=== PATIENT | female | born 1995 | race Caucasian/White ===

== ENCOUNTER → 2025-03-29 | Outpatient (CLI) | payer BC ==
[2025-03-29 15:50] LABS: Chol/HDL Ratio 5.71 Ratio
[2025-03-29 15:51] LABS: ALT 16 U/L (8-44); AST 20 U/L (13-35); Albumin 3.9 g/dL (3.8-4.9); Albumin/Globulin Ratio 1.44 Ratio (1.60-3.17); Alkaline Phosphatase 120 U/L (41-126); Blood Urea Nitrogen 4.6 mg/dL (9.0-27.0); Calcium 9.3 mg/dL (8.7-10.3); Carbon Dioxide 21.2 mmol/L (21.6-31.8); Chloride 105 mmol/L (96-109); Globulin 2.7 g/dL (1.6-3.3); Glucose 80 mg/dL (70-110); LDL Cholesterol,Calculated 187.3 mg/dL (0.0-131.0); Potassium 4.1 mmol/L (3.5-5.5); Sodium 137 mmol/L (135-145); Total Bilirubin <0.2 mg/dL (0.3-1.2); Total Protein 6.6 g/dL (6.2-8.2)
[2025-03-29 16:15] LABS: Basophils # (A) 0.04 X 10*3/uL (0.00-0.10); Basophils % (A) 0.3 %; Eosinophils # (A) 0.07 X 10*3/uL (0.04-0.35); Eosinophils % (A) 0.6 %; HGB 10.9 g/dL (12.0-15.0); Lymphocytes # (A) 1.69 X 10*3/uL (0.90-5.00); Lymphocytes % (A) 14.4 %; MCH 31.6 pg (27.0-32.0); MCV 95.7 FL (80.0-97.0); Mean Platelet Volume 11.1 FL (9.5-12.2); Monocytes # (A) 0.85 X 10*3/uL (0.20-1.00); Monocytes % (A) 7.2 %; NRBC Per 100 WBC 0 X 10*3/uL (0.00-0.01); Neutrophils # (A) 8.95 X 10*3/uL (1.80-7.70); Neutrophils % (A) 76.1 %; Platelet Count 191 X 10*3/uL (140-440); RBC 3.45 X 10*6/uL (4.10-5.20); RDW 13.2 % (11.5-14.5); WBC 11.77 X 10*3/uL (4.50-10.00)
== END | disposition home or self-care (01) ==
LOC: LABWHC1 10:37
PROVIDERS: ATTEND Family Medicine
DX: Z00.00 Encounter for general adult medical examination without abnormal findings (principal)
CPT/HCPCS: 36415; 80053; 80061; 83036; 84443; 85025

== ENCOUNTER 2025-05-31 06:00 | Inpatient (IN) | payer BC ==
[2025-05-31] MEDS ORDERED: TERBUTALINE 1 MG/ML VIAL SQ PRN (19:26)
[2025-05-31] MEDS ORDERED: TRANEXAMIC 1,000 MG/100ML-NACL 1,000 MG in EMPTY BAG 1 BAG IV PRN (19:26)
[2025-05-31] MEDS ORDERED: OXYTOCIN 10 UNIT/ML 1 ML VIAL IM PRN (19:26)
[2025-05-31] MEDS ORDERED: CARBOPROST TROMETHAMINE 250 MCG/ML 1 ML AMP IM PRN (19:26)
[2025-05-31] MEDS ORDERED: LIDOCAINE 0.5% (PF) 5 MG/ML (50 ML SDV) SQ PRN (19:26)
[2025-05-31] MEDS ORDERED: METHYLERGONOVINE 0.2 MG/ML 1 ML AMP IM PRN (19:26)
[2025-05-31 20:00] LABS: Basophils # (A) 0.04 10*3/uL (0.00-0.10); Basophils % (A) 0.3 %; Eosinophils # (A) 0.08 10*3/uL (0.04-0.35); Eosinophils % (A) 0.6 %; HCT 31.3 % (37.2-46.3); HGB 10.8 g/dL (12.0-15.0); Lymphocytes # (A) 1.86 10*3/uL (0.90-5.00); Lymphocytes % (A) 14.2 %; MCH 31.7 pg (27.0-32.0); MCHC 34.5 g/dL (32.0-37.0); MCV 91.8 fL (80.0-97.0); Monocytes # (A) 1.11 10*3/uL (0.20-1.00); Monocytes % (A) 8.5 %; Neutrophils # (A) 9.86 10*3/uL (1.80-7.70); Neutrophils % (A) 75.2 %; Platelet Count 218 10*3/uL (140-440); RBC 3.41 10*6/uL (4.10-5.20); RDW 13.3 % (11.5-14.5); WBC 13.11 10*3/uL (4.50-10.00)
[2025-05-31] MEDS: DINOPROSTONE 10 MG INSERT.ER VAGINAL ONE (20:03)
--- NOTE | 2025-05-31 20:22 | P.HPOB ---
History of Present Illness H&P Date: 05/31/25 Chief Complaint: 38+ weeks, IUGR, induction The patient is a 29-year-old 1 para 0 admitted at 38+ weeks as established by last menstrual period and confirmed by second trimester ultrasound. She is admitted with a diagnosis of intrauterine growth restriction based on an abdominal circumference of less than 10th percentile. She has had reassuring twice-weekly testing since 34 weeks at the time of diagnosis. Her has otherwise been uncomplicated and group B strep status is negative. On labor and delivery, all signs are reassuring with a garo gory 1 heart rate tracing. Obstetrical history: 1 para 0 with current statistics listed in history of present illness. EDC of 06/12/2025 was established by last menstrual period and confirmed by second trimester ultrasound. Laboratory workup demonstrates a blood type of O+ with a negative antibody screen. Rubella status is immune. The remainder of the laboratory workup is within normal limits. 1 hour Glucola was normal and group B strep status is negative. Gynecologic history: Unremarkable with no history of any infections to include STDs. Review of Systems Review of systems is confined to history of present illness. Past Medical History Additional Past Medical History / Comment(s): anemia History of Any Multi-Drug Resistant Organisms: None Reported Past Surgical History: No Surgical Hx Reported Past Anesthesia/Blood Transfusion Reactions: No Reported Reaction Past Psychological History: No Psychological Hx Reported Smoking Status: Never smoker Past Drug Use History: None Reported Medications and Allergies Allergies Allergy/AdvReac Type Severity Reaction Status Date / Time amoxicillin Allergy Nausea & Verified 05/31/25 19:25 Vomiting Penicillins Allergy Nausea & Verified 05/31/25 19:25 Vomiting Exam Vital Signs Temp Pulse Resp BP Pulse Ox 05/31/25 19:24 97.7 F 75 16 96/65 99 Intake and Output 05/31/25 05/31/25 05/31/25 06:59 14:59 22:59 Other: # Voids 1 Weight 90.265 kg In general, this is a well-developed, well-nourished white female in no acute distress. Her heart has a regular rhythm and rate without murmur. Her lungs clear to auscultation bilateral in all honeycutt. Her abdomen is gravid, nondistended, has normal active bowel sounds, soft, nontender, without any palpable masses aside from the uterine fundus. Her extremities are without any cyanosis, clubbing, or edema and are nontender to palpation bilaterally. Digital cervical examination demonstrates her cervix to be 1 cm dilated, thick, with the vertex and presentation at -3-4 station. Given her unfavorable station, Cervidil was placed in the posterior vaginal fornix per protocol. Results Result Diagrams: 05/31/25 19:46 Abnormal Lab Results - Last 24 Hours (Table) 05/31/25 Range/Units 19:46 WBC 13.11 H (4.50-10.00) 10*3/uL RBC 3.41 L (4.10-5.20) 10*6/uL Hgb 10.8 L (12.0-15.0) g/dL Hct 31.3 L (37.2-46.3) % Immature Gran # 0.16 H (0.00-0.04) 10*3/uL Neutrophils # 9.86 H (1.80-7.70) 10*3/uL Monocytes # 1.11 H (0.20-1.00) 10*3/uL Assessment and Plan (1) Unfavorable cervix in term Current Visit: Yes Status: Acute Code(s): O34.40 - MATERNAL CARE FOR OTH ABNLT OF CERVIX, UNSP TRIMESTER SNOMED Code(s): 754274740 (2) Intrauterine growth retardation in Current Visit: Yes Status: Acute Code(s): O36.5990 - MATERN CARE FOR OTH OR SUSP POOR FETL GRTH, UNSP TRI, UNSP SNOMED Code(s): 372254576 (3) Term Current Visit: Yes Status: Acute Code(s): Z34.90 - ENCNTR FOR SUPRVSN OF NORMAL , UNSP, UNSP TRIMESTER SNOMED Code(s): 03596847 Plan: The patient is admitted for Cervidil cervical ripening to be followed by Pitocin induction tomorrow morning should it be necessary. Cervidil has been placed. All signs are reassuring with a category 1 heart rate tracing. She will have close maternal and surveillance and expectant management will be practiced. She is a good candidate for either IV or epidural analgesia, whichever she may choose. The risks and complications of cervical ripening and induction have been thoroughly explained.
[2025-06-01] MEDS: BUTORPHANOL 1 MG/ML 1 ML VIAL IV PRN (00:40)
[2025-06-01] MEDS: LACTATED RINGERS 1,000 ML IV SCH (00:40)
[2025-06-01] MEDS: OXYTOCIN 30 UNITS/500 ML NS 30 UNIT in SALINE 1 500ML.BAG IV SCH (06:02)
[2025-06-01] MEDS ORDERED: SODIUM CHLORIDE 0.9% 250 ML BAG ONE (09:48)
[2025-06-01] MEDS ORDERED: ROPIVACAINE 5 MG/ML 30 ML VIAL ONE (09:48)
[2025-06-01] MEDS ORDERED: fentaNYL (PF) 50 MCG/ML 5 ML AMP ONE (09:48)
[2025-06-01] MEDS ORDERED: diphenhydrAMINE 25 MG CAP PO PRN (14:40)
[2025-06-01] MEDS ORDERED: LANOLIN CREAM 1 GM TUBE TOPICAL PRN (14:40)
[2025-06-01] MEDS ORDERED: SIMETHICONE 80 MG CHEWABLE PO PRN (14:40)
[2025-06-01] MEDS ORDERED: BENZOCAINE/MENTHOL SPRAY 1 GM/SPRAY AEROSOL TOPICAL PRN (14:40)
[2025-06-01] MEDS ORDERED: HYDROCORTISONE 2.5% RECTAL CREAM 30 GM TUBE RECTAL PRN (14:40)
[2025-06-01] MEDS ORDERED: ACETAMINOPHEN TAB 500 MG TAB PO PRN (14:40)
[2025-06-01] MEDS ORDERED: diphenhydrAMINE 50 MG/ML 1 ML VIAL IVP PRN ×2 (14:40)
[2025-06-01] MEDS ORDERED: ZOLPIDEM 5 MG TAB PO PRN (14:40)
--- NOTE | 2025-06-01 14:44 | P.PROBDLV ---
Vaginal Delivery Note - . Vaginal Delivery Note: The patient is a 29-year-old 1 para 0 admitted at 38-3/7 weeks by good dating parameters. She is admitted for induction of labor secondary to a diagnosis of intrauterine growth restriction with the sole parameter making the diagnosis being an abdominal circumference less than 10th percentile. Her has been otherwise uncomplicated. testing done twice weekly since the diagnosis has been reassuring throughout. On labor delivery, she is admitted with a category 1 heart rate tracing. Group B strep status is negative. Her cervix was unfavorable for induction and she was admitted last evening for Cervidil cervical ripening which was placed in the posterior vaginal fornix per protocol. She did have some cramping overnight and this morning was found to be much more favorable with her cervix being 2+ centimeters dilated, 50% effaced, with the vertex and presentation -2 station. She had Pitocin started followed by artificial rupture of membranes for clear fluid. She made progress towards the active phase of labor and then had an epidural catheter placed for analgesia. She continued to progress steadily and ultimately reached complete. She pushed for approximately 40 minutes to a normal spontaneous vaginal delivery of a viable 5 pound 15.2 ounce baby boy with Apgars of 9 at 1 minute and 9 at 5 minutes delivered in the direct occiput anterior position. There was a loose nuchal cord x 1 which was reduced following delivery of the . The placenta was delivered spontaneously, intact, and grossly normal with a grossly normal, marginally inserted three-vessel cord. There was a small first-degree perineal laceration which was repaired with a single [id number] stitch of 3-0 chromic catgut without difficulty. Estimated blood loss for the case was approximately 100 mL. There were no complications. All sponge, instrument, and needle counts were correct. Both mother and infant are resting comfortably in recovery.
[2025-06-01] MEDS ORDERED: OXYTOCIN 30 UNITS/500 ML NS 30 UNIT in SALINE 1 500ML.BAG IV SCH (14:45)
[2025-06-01] MEDS: SENNOSIDES-DOCUSATE SODIUM 1 EACH TAB PO SCH (20:17)
[2025-06-01 20:41] VITALS: RESP 16
[2025-06-02] MEDS: IBUPROFEN 800 MG TAB PO PRN (05:46)
[2025-06-02 07:24] LABS: Basophils # (A) 0.05 10*3/uL (0.00-0.10); Basophils % (A) 0.3 %; Eosinophils # (A) 0.15 10*3/uL (0.04-0.35); Eosinophils % (A) 1.0 %; HCT 30.8 % (37.2-46.3); HGB 10.2 g/dL (12.0-15.0); Lymphocytes # (A) 2.28 10*3/uL (0.90-5.00); Lymphocytes % (A) 15.6 %; MCH 30.9 pg (27.0-32.0); MCHC 33.1 g/dL (32.0-37.0); MCV 93.3 fL (80.0-97.0); Monocytes # (A) 1.26 10*3/uL (0.20-1.00); Monocytes % (A) 8.6 %; Neutrophils # (A) 10.75 10*3/uL (1.80-7.70); Neutrophils % (A) 73.7 %; Platelet Count 217 10*3/uL (140-440); RBC 3.30 10*6/uL (4.10-5.20); RDW 13.5 % (11.5-14.5); WBC 14.60 10*3/uL (4.50-10.00)
--- NOTE | 2025-06-02 09:38 | P.DS ---
Providers Date of admission: 05/31/25 19:10 Expected date of discharge: 06/02/25 Attending physician: Ciaran Mina Primary care physician: Abelino Renee - Discharge Diagnosis(es) (1) Unfavorable cervix in term Current Visit: Yes Status: Acute (2) Intrauterine growth retardation in Current Visit: Yes Status: Acute (3) Term Current Visit: Yes Status: Acute (4) Normal spontaneous vaginal delivery Current Visit: Yes Status: Acute Hospital Course: The patient is a 29-year-old 1 para 0 admitted at 38-3/7 weeks by good dating parameters. She is admitted initially with an unfavorable cervix for cervical ripening and induction to follow secondary to a diagnosis of intrauterine growth restriction. Her was otherwise uncomplicated and testing was reassuring twice weekly from 32 weeks. Group B strep status was negative. She had a Cervidil placed in the posterior fornix per protocol which made good change of the cervix overnight allowing for Pitocin to be started and artificial rupture of membranes to be carried out without difficulty for clear fluid. She made steady progress through the day and had an epidural catheter placed for analgesia. She ultimately progressed to complete and then pushed to a normal spontaneous vaginal delivery of a viable 5 pound 15 ounce baby boy with Apgars of 9 at 1 minute and 9 at 5 minutes. Her course was unremarkable with vital signs remaining stable and her temperature was afebrile throughout. She was deemed stable for discharge on day #1 and was discharged home to follow-up in the office in 6 weeks time routinely. Discharge instructions included calling for any significantly increased bleeding or foul-smelling lochia, significantly increased fever or abdominal pain, perineal complaints, breast complaints, or anything else of concern to her. She was additionally instructed to have nothing in the vagina to include intercourse for at least 6 weeks time. She understood her instructions and agrees to follow-up as noted above. Discharge medications included continued vitamins as she has opted to breast-feed. She was otherwise to use [id number] analgesic pain medications as needed. Procedures: #1. Cervidil cervical ripening #2. Pitocin induction #3. Artificial rupture of membranes #4. Epidural analgesia #5. Normal spontaneous vaginal delivery #6. Repair of first-degree perineal laceration Patient Condition at Discharge: Stable Plan - Discharge Summary Follow up Appointment(s)/Referral(s): Ciaran Mina MD [STAFF PHYSICIAN] - 07/13/25 2:45 pm Discharge Disposition: HOME SELF-CARE
[2025-06-02 11:52] VITALS: BP 109/73; PULSE 85; TEMP 97.9
== END 2025-06-02 15:55 | disposition home or self-care (01) | DRG 807 ==
LOC: 4FBP 19:10
PROVIDERS: ADMIT Obstetrics & Gynecology; ATTEND Obstetrics & Gynecology
PROC: 3E0P7VZ Introduction of Hormone into Female Reproductive, Via Natural or Artificial Opening (ICD-10-PCS; 2025-05-31)
PROC: 10E0XZZ Delivery of Products of Conception, External Approach (ICD-10-PCS; principal; 2025-06-01)
PROC: 0HQ9XZZ Repair Perineum Skin, External Approach (ICD-10-PCS; 2025-06-01)
PROC: 10907ZC Drainage of Amniotic Fluid, Therapeutic from Products of Conception, Via Natural or Artificial Opening (ICD-10-PCS; 2025-06-01)
PROC: 3E033VJ Introduction of Other Hormone into Peripheral Vein, Percutaneous Approach (ICD-10-PCS; 2025-06-01)
DX: O36.5930 Maternal care for other known or suspected poor fetal growth, third trimester, not applicable or unspecified (principal); Z37.0 Single live birth; O69.81X0 Labor and delivery complicated by cord around neck, without compression, not applicable or unspecified; O70.0 First degree perineal laceration during delivery; Z3A.38 38 weeks gestation of pregnancy
CPT/HCPCS: 85025; 86850; 86900; 86901